=== PATIENT | male | born 1965 | race Two or more races ===

== ENCOUNTER 2017-10-06 08:26 | Outpatient (CLI) | payer OTHER | END 2017-10-06 08:51 | disposition home or self-care (01) | LOC: RAD 501 08:26 | DX: M54.5 Low back pain (principal); E55.9 Vitamin D deficiency, unspecified; E66.8 Other obesity; E11.51 Type 2 diabetes mellitus with diabetic peripheral angiopathy without gangrene; E11.9 Type 2 diabetes mellitus without complications; G62.89 Other specified polyneuropathies; K21.9 Gastro-esophageal reflux disease without esophagitis; E11.42 Type 2 diabetes mellitus with diabetic polyneuropathy; F41.8 Other specified anxiety disorders; E11.65 Type 2 diabetes mellitus with hyperglycemia; I73.9 Peripheral vascular disease, unspecified ==

== ENCOUNTER 2024-07-02 07:51 | Outpatient (CLI) | payer OTHER ==
[2024-07-02 09:29] LABS: HEMATOCRIT 43.8 % (39.0-48.0); HEMOGLOBIN 14.7 g/dL (13-16.00); MEAN CELL VOLUME 80.9 fL (80.0-100.00); MEAN CORPUSCULAR HEMOGLOBIN 27.2 pg (27.00-32.0); MEAN CORPUSCULAR HGB CONC 33.6 g/dl (32.0-36.0); PLATELET COUNT 256 K/uL (150-450); RED BLOOD COUNT 5.42 M/uL (4.00-6.00); RED CELL DISTRIBUTION WIDTH 13.7 % (11.5-14.5)
[2024-07-02 09:35] LABS: PH,URINE 5.5 (5.0-8.0); URINE APPEARANCE Clear; URINE BILIRRUBIN Negative (NEGATIVE); URINE BLOOD Negative; URINE COLOR Dark Yellow; URINE GLUCOSE Negative (NEGATIVE); URINE KETONE Trace (NEGATIVE); URINE LEUKOCYTE Trace; URINE NITRATE Negative; URINE PROTEIN 30 (NEGATIVE)
[2024-07-02 09:38] LABS: URINE EPITHELIAL CELLS 9.6 uL (0.0-38.8); URINE RBC 9.1 uL (0.0-20.8); URINE WBC 42.2 uL (0.0-23.2)
[2024-07-02 09:54] LABS: INR 0.99; PARTIAL THROMBOPLASTIN TIME 27.3 SECONDS (22.0-34.0); PROTHROMBIN TIME 10.8 SECONDS (9.0-11.5)
[2024-07-02 10:11] LABS: URINE CAST 0.29 uL (0.0-1.40)
[2024-07-02 10:12] LABS: CALCIUM 9.7 mg/dL (8.5-10.1); CREATININE SERUM 1.01 mg/dL (0.70-1.30); GFR 75.35; POTASSIUM 4.83 mEq/L (3.5-5.1); TSH 0.775 uIU/mL (0.358-3.74)
== END 2024-07-02 07:58 | disposition home or self-care (01) ==
LOC: LAB 07:51
DX: N20.0 Calculus of kidney (principal); R10.9 Unspecified abdominal pain; R31.0 Gross hematuria

== ENCOUNTER 2024-07-02 08:16 | Outpatient (CLI) | payer OTHER | END 2024-07-02 08:25 | disposition home or self-care (01) | LOC: RAD 08:16 | PROVIDERS: ATTEND Urology | DX: N20.0 Calculus of kidney (principal); R10.9 Unspecified abdominal pain; N40.1 Benign prostatic hyperplasia with lower urinary tract symptoms; N52.9 Male erectile dysfunction, unspecified ==

== ENCOUNTER 2024-11-19 08:35 | Outpatient (CLI) | payer OTHER ==
[2024-11-19 10:05] LABS: URINE APPEARANCE Clear; URINE BILIRRUBIN Negative (NEGATIVE); URINE BLOOD Negative; URINE COLOR Yellow; URINE GLUCOSE Negative (NEGATIVE); URINE KETONE Trace (NEGATIVE); URINE LEUKOCYTE Trace; URINE NITRATE Negative; URINE PROTEIN Negative (NEGATIVE); URINE UROBILINOGEN 0.2 E.U./dl
[2024-11-19 10:12] LABS: URINE BACTERIA 5.9 uL (0.0-1933); URINE EPITHELIAL CELLS 1.6 uL (0.0-38.8); URINE RBC 3.2 uL (0.0-20.8); URINE WBC 28.8 uL (0.0-23.2)
[2024-11-19 10:12] LABS: BASO % 0.8 % (0.1-1.2); EOS # 0.17 (0.04-0.54); EOS % 2.3 % (0.7-7.0); LYMPH # 1.95 (1.18-3.74); LYMPH % 26.6 % (19.3-53.1); MEAN PLATELET VOLUME 10.60 fl (9.4-12.4); MONO # 0.72 (0.24-0.82); MONO % 9.8 % (4.7-12.5); NEUT # 4.42 (1.56-6.13); NEUT % 60.4 % (34.0-71.1); RED CELL DISTRIBUTION WIDTH 13.5 % (11.6-14.4)
[2024-11-19 10:25] LABS: URINE CAST 0.00 uL (0.0-1.40)
[2024-11-19 10:42] LABS: ALT/SGPT 15.0 U/L (12-78); AST/SGOT 11.0 U/L (15-37); BILIRUBIN TOTAL 0.46 mg/dL (0.3-1.2); BUN CREA RATIO 28.0 (7.0-25.0); CHOL HDL RATIO 3.2 (0-5.0); CREATININE SERUM 0.71 mg/dL (0.70-1.30); GFR 112.79; GLOBULINA 3.5 G/DL (2.4-3.5); GLUCOSE FASTING 102.0 mg/dL (65-100); HDL 48.0 mg/dl (40-60); LDL 88.0 mg/dl (0-130); OSMOLALITY SERUM 278.0 MOSM/KG (275-295); VLDL 18.0 (0-39)
== END 2024-11-19 08:37 | disposition home or self-care (01) ==
LOC: LAB 08:35
DX: E11.65 Type 2 diabetes mellitus with hyperglycemia (principal); E78.2 Mixed hyperlipidemia; I10 Essential (primary) hypertension; D50.8 Other iron deficiency anemias; R30.0 Dysuria